=== PATIENT | female | born 1935 | race Caucasian/White ===

== ENCOUNTER 2019-02-15 14:35 | Inpatient (IN) | payer MEDICARE, OTHER ==
[2019-02-15] MEDS ORDERED: ACETAMINOPHEN 325 MG TABLET PO PRN (16:41)
[2019-02-15] MEDS ORDERED: SODIUM CHLORIDE FLUSH 0.9% 10 ML SYRINGE IVP PRN (16:41)
[2019-02-15] MEDS ORDERED: PROCHLORPERAZINE 10 MG/2 ML VIAL IVP PRN (16:41)
[2019-02-15] MEDS ORDERED: LEVALBUTEROL 1.25 MG/3 ML NEB INH PRN (16:50)
[2019-02-15] MEDS ORDERED: guaiFENesin/CODEINE 5 ML UDC PO PRN (16:52)
[2019-02-15] MEDS: SODIUM CHLORIDE FLUSH 0.9% 10 ML SYRINGE IVP SCH (19:03)
[2019-02-15] MEDS: DEXTROSE 5%-0.45% NACL 1,000 ML IV SCH (19:03)
--- NOTE | 2019-02-15 19:50 | HISTORY & PHYSICAL EXAMINATION ---
DATE OF SERVICE: 02/15/2019 Physician: Sarai Gordon MD HISTORY OF PRESENT ILLNESS: This is an 83-year-old white female with history of hypertension and hyperlipidemia on medications. Otherwise a negative past medical history. The patient developed a cough, sputum production and shortness of breath yesterday. She felt very weak and tired and went to bed early. She woke up to go to the bathroom in the middle of the night and fell on the floor, hitting her left side of her head. She was too weak to get up. Her finally helped her and it took him all his strength to raise her to bed, because he also currently has upper respiratory infection. She was brought to the emergency room this morning and first blood pressure check was 93 systolic. She was started on fluids and the blood pressure improved into the 115 range. There was a temperature of 101 F, and resting room air oxygen showed a low saturation of 87%. She had an influenza swab was positive for influenza A. The patient has never been to this hospital. The above ER evaluation was at [facility], where she was planned to be admitted, but they are full and on divert. The [facility] ER doctor called me and I accepted her in transfer for direct admission. PAST MEDICAL HISTORY: Hypertension and hyperlipidemia. SOCIAL HISTORY: The patient is an ex-smoker who quit in the 1970s, drinks no alcohol, uses no illicit drugs. 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 She lives with her . FAMILY HISTORY: Rheumatoid arthritis runs in the family, which her father, and 2 of her 3 children have, but she does not have this. REVIEW OF SYSTEMS: A comprehensive review of systems was performed. The pertinent positives are listed, the rest are negative. ALLERGIES: NONE. MEDICATIONS: Blood pressure medicine and statin medicine (names unknown), otherwise, not known yet, as far as any p.r.n. or [id number] medication. PHYSICAL EXAMINATION GENERAL: White female who appears younger than her age. She has a large ecchymosis around the left eye. VITAL SIGNS: Blood pressure 128/50, heart rate 78 in sinus rhythm, oxygen saturation 96% on 4 liters nasal cannula. HEENT: Reveals the large ecchymosis of the left eye, but her extraocular movements are intact and her pupils are equal, round and reactive. NECK: Has no JVD or carotid bruits. CHEST: Clear. Good air movement. No wheezing. HEART: Heart sounds are normal. No murmur, gallop or rub. ABDOMEN: Soft, obese. Positive bowel sounds. Nontender. No organomegaly. EXTREMITIES: Ecchymoses over the lower extremities and the right elbow. NEUROLOGIC: Grossly intact. LABORATORY DATA: No labs are available here; however, the reports given to me were the following: she has influenza A positive. Lactic acid normal. Chest x- ray showed no infiltrate. A CT of the head was done that showed no abnormality. IMPRESSION/DIAGNOSES 1. Hypotension. 2. Hypoxia. 3. Bronchitis. 4. Influenza A. 5. Fall at home. PLAN 1. Admit the patient to telemetry. 2. Obtain an Echo to evaluate for abnormalities to explain the hypoxia and hypotension. 3. Continue with IV fluids for the low blood pressure. 4. Culture her sputum. 5. Use nebulizers p.r.n. 6. Tamiflu was started in the emergency room at [facility] and should be continued here for a 5 to 10-day course. 7. Infectious isolation precautions will be started. 8. Mucinex will be ordered for her cough. 9. Pulmonary toilet. 10. Obtain standard blood tests here. DEEP VENOUS THROMBOSIS PROPHYLAXIS: SCDs. CODE STATUS: FULL CODE. ATTESTATION: The patient is expected to be discharged or transferred to another facility at 96 hours: Yes. cc: Primary Care , TD: 02/15/2019 19:21 MTDD
[2019-02-15] MEDS ORDERED: MIN OIL/DIMETHICON/COCONUT OIL 92 GM TUBE TOP SCH (21:00)
[2019-02-15] MEDS ORDERED: NYSTATIN POWDER 15 GM TOP SCH (21:00)
[2019-02-15] MEDS ORDERED: OSELTAMIVIR 75 MG CAPSULE PO SCH (21:00)
[2019-02-15] MEDS: guaiFENesin 600 MG TABLET PO SCH (21:27)
[2019-02-16] MEDS: SODIUM CHLORIDE FLUSH 0.9% 10 ML SYRINGE IVP SCH ×3 (01:51→17:04)
[2019-02-16] MEDS: DEXTROSE 5%-0.45% NACL 1,000 ML IV SCH ×2 (04:27→17:03)
[2019-02-16 05:53] LABS: BASOPHILS % (AUTO) 0.6 %; EOSINOPHILS % (AUTO) 0.6 %; HGB - HEMOGLOBIN 11.3 g/dL (12.0-16.0); LYMPHOCYTES % (AUTO) 22.9 %; MEAN CORPUSCULAR HEMOGLOBIN 31.8 pg (27.0-31.0); MEAN CORPUSCULAR HGB CONC 33.2 g/dL (32.0-36.0); MEAN CORPUSCULAR VOLUME 95.6 fL (81.0-99.0); MEAN PLATELET VOLUME 7.8 fL (7.9-10.8); MONOCYTES % (AUTO) 22.6 %; NEUTROPHILS # (AUTO) 2.4 10^3/uL (1.5-6.6); NEUTROPHILS % (AUTO) 53.3 %; PLT - PLATELET COUNT 271 10^3/uL (130-450); RED BLOOD COUNT 3.54 10^6/uL (4.20-5.40); RED CELL DISTRIBUTION WIDTH 13.2 % (12.0-15.0); WHITE BLOOD COUNT 4.6 x10^3/uL (4.8-10.8)
[2019-02-16 06:07] LABS: ALBUMIN 2.9 g/dL (3.2-5.5); BILIRUBIN,TOTAL 0.6 mg/dL (0.2-1.0); CALCIUM 8.2 mg/dL (8.5-10.3); CREATININE 0.9 mg/dL (0.4-1.0); MAGNESIUM 1.6 mg/dL (1.7-2.8); TOTAL PROTEIN 5.9 g/dL (6.7-8.2)
[2019-02-16] MEDS: FAMOTIDINE 20 MG TABLET PO SCH ×3 (08:20→21:40)
[2019-02-16] MEDS ORDERED: POTASSIUM CHLORIDE 20 MEQ TABLET PO ONE (08:28)
[2019-02-16] MEDS: guaiFENesin 600 MG TABLET PO SCH ×2 (09:02→21:40)
[2019-02-16] MEDS: MAGNESIUM OXIDE 400 MG TABLET PO SCH (09:02)
[2019-02-16] MEDS: POLYETHYLENE GLYCOL 3350 17 GM PACKET PO SCH (09:03)
[2019-02-16] MEDS: OSELTAMIVIR 30 MG CAPSULE PO SCH ×2 (09:03→21:41)
[2019-02-16] MEDS: ACETAMINOPHEN 325 MG TABLET PO PRN (09:03)
--- NOTE | 2019-02-16 12:24 | XRAY Report ---
Reason: F/U cough and SOB Procedure Date: 02/16/2019 Accession Number: [id number] / [id number] Procedure: XR - Chest 1 View X-Ray CPT Code: 10060 FULL RESULT: EXAM: CHEST RADIOGRAPHY EXAM DATE: 02/16/2019 11:27 AM. CLINICAL HISTORY: Follow up cough and shortness of breath. COMPARISON: XR CHEST 1V 02/15/2019 12:32 PM. TECHNIQUE: 1 view. FINDINGS: Lungs/Pleura: No focal opacities evident. No pleural effusion. No pneumothorax. Mediastinum: Within exam limitations, the cardiomediastinal contour is normal. Other: None. IMPRESSION: No acute airspace disease is detected. RADIA
--- NOTE | 2019-02-16 14:59 | PROVIDER PROGRESS NOTE ---
Assessment/Plan - Problem List (1) Bronchitis Assessment/Plan: No hypoxia on peters[pplemental O2. No evidence of pneumonia on our CXR, repeated this am after iv hydration. She has less cough and no SOB at rest. Continue influenza treatment. Wean off O2 when possible. (2) Influenza A Assessment/Plan: Continue Tamiflu for a 5 day course. She will be not infectious after 48 hours, which will be tomorrow evening. Poss DCh the following day (02/18/19). (3) Orthostatic hypotension Assessment/Plan: Still has drop in BP, but no supine hypotension. Will continue iv hydration. Echo pending. Her HTN meds will not be resumed yet. (4) Fall at home Assessment/Plan: This was likely from hypotension, orthostasis, dehydration. Echo pending (5) Hypoxia Assessment/Plan: Echo pending. (6) Hypokalemia Assessment/Plan: Likely from poor po intake. Replace K and monitor BMP daily. - Current Meds Current Meds: Current Medications Generic Name Dose Route Start Last Admin Trade Name Freq PRN Reason Stop Dose Admin Acetaminophen 650 mg 02/15/19 17:58 02/16/19 09:03 Tylenol PO 650 mg Q4HR PRN Administration Pain or Fever > 38C (100.4F) Famotidine 20 mg 02/15/19 21:00 02/16/19 09:02 Pepcid PO 20 mg BID MIAN Administration Guaifenesin 600 mg 02/15/19 21:00 02/16/19 09:02 Mucinex PO 600 mg BID MIAN Administration Dextrose/Sodium Chloride 1,000 mls @ 100 mls/hr 02/15/19 17:00 02/16/19 04:27 D5.45ns IV 100 mls/hr .Q10H MIAN Administration Levalbuterol HCl 1.25 mg 02/15/19 16:50 02/15/19 22:28 Xopenex INH 1.25 mg Q4H PRN Administration Shortness of Air/Wheezing Magnesium Oxide 400 mg 02/16/19 09:00 02/16/19 09:02 Mag Ox PO 400 mg DAILYWM MIAN Administration Oseltamivir Phosphate 30 mg 02/16/19 09:00 02/16/19 09:03 Tamiflu PO 02/20/19 21:01 30 mg BID MIAN Administration Polyethylene Glycol 17 gm 02/16/19 09:00 02/16/19 09:03 Miralax PO 17 gm DAILY MIAN Administration Sodium Chloride 10 ml 02/15/19 17:00 02/16/19 09:03 Normal Saline Flush 0.9% IVP Not Given 0100,0900,1700 MIAN - Lab Result Fish Bone Diagrams: 02/16/19 05:00 02/16/19 05:00 - EKG Results EKG Interpreted Independently: Yes EKG Comparison: No prior EKG EKG Findings: NSR, flat lateral T waves. - Additional Planning My Orders: My Active Orders 02/15/19 16:41 Activity Orders [RC] Q2HR IO [RC] IOSHIFT Initiate Bowel Care Protocol [RC] .protocol Initiate Bronchodialator Dori [RC] .PROTOCOL Initiate Line Care Protocol [RC] .protocol Initiate Line Care Protocol [RC] .protocol Initiate Personal Care Protoco [RC] .protocol Initiate Secretion Clearance P [RC] .PROTOCOL Oxygen Therapy [RC] .PRN Telemetry- [RC] Q4HR Vital Signs [RC] Q4HR Prochlorperazine Inj [Compazine Inj] 10 mg IVP Q6HR PRN Sodium Chloride Flush 0.9% [Normal Saline Flush 0.9%] 10 ml IVP PRN PRN Code Status [OTHERS] Routine Condition of Patient [OTHERS] Routine DVT Prophylaxis [OTHERS] Routine 02/15/19 16:48 IV Insert [RC] .ONCE SCDs [RC] QSHIFT 02/15/19 16:50 Nebulizer/MDI Tx. [RC] .PRNQ4 Levalbuterol [Xopenex] 1.25 mg INH Q4H PRN 02/15/19 16:52 guaiFENesin/CODEINE [Robitussin AC] 5 ml PO Q6HR PRN 02/15/19 16:53 Infection Precautions [RC] ONCE 02/15/19 17:00 Dextrose 5%-0.45% NaCl [D5.45ns] 1,000 ml IV 100 mls/hr Sodium Chloride Flush 0.9% [Normal Saline Flush 0.9%] 10 ml IVP 0100,0900,1700 02/15/19 17:58 Acetaminophen [Tylenol] 650 mg PO Q4HR PRN 02/15/19 21:00 Famotidine [Pepcid] 20 mg PO BID guaiFENesin [Mucinex] 600 mg PO BID 02/15/19 Dinner Regular Diet [DIET] 02/16/19 08:00 Echo Transthoracic Complete [ECHO] Routine 02/16/19 09:00 Magnesium Oxide [Mag Ox] 400 mg PO DAILYWM Oseltamivir [Tamiflu] 30 mg PO BID Polyethylene Glycol 3350 [Miralax] 17 gm PO DAILY 02/16/19 10:16 Postural [Vital Signs - Orthostatic] [RC] DAILY 02/17/19 05:00 CBC - COMP BLD CT W/AUTO DIFF [HEME] DAILYLAB CMP [COMPREHENSIVE METABOLIC PANEL] [CHEM] DAILYLAB MAGNESIUM [CHEM] DAILYLAB 02/18/19 05:00 CBC - COMP BLD CT W/AUTO DIFF [HEME] DAILYLAB CMP [COMPREHENSIVE METABOLIC PANEL] [CHEM] DAILYLAB Subjective - Subjective Patient Reports: Feeling Better, Resting Comfortably Objective Vital Signs: Vital Signs - 24 hr 02/15/19 02/15/19 02/15/19 17:59 18:26 19:44 Temperature 37.8 C H 37.7 C H Heart Rate Heart Rate [ 78 Brachial] Heart Rate [ Sitting (After 1 Minute)] Heart Rate [ Standing (After 1 Minute)] Heart Rate [ Supine] Respiratory 16 Rate Blood Pressure 128/53 L [Left Brachial artery] Blood Pressure [Sitting (After 1 Minute)] Blood Pressure [Standing ( After 1 Minute) ] Blood Pressure [Supine] O2 Saturation 96 02/15/19 02/15/19 02/16/19 22:22 22:34 00:12 Temperature 37.7 C H 37.5 C Heart Rate 76 Heart Rate [ 72 71 Brachial] Heart Rate [ Sitting (After 1 Minute)] Heart Rate [ Standing (After 1 Minute)] Heart Rate [ Supine] Respiratory 16 20 18 Rate Blood Pressure 120/45 L 100/44 L [Left Brachial artery] Blood Pressure [Sitting (After 1 Minute)] Blood Pressure [Standing ( After 1 Minute) ] Blood Pressure [Supine] O2 Saturation 95 97 02/16/19 02/16/19 02/16/19 05:00 07:34 10:40 Temperature 37.9 C H 37.9 C H Heart Rate Heart Rate [ 73 77 Brachial] Heart Rate [ 85 Sitting (After 1 Minute)] Heart Rate [ 84 Standing (After 1 Minute)] Heart Rate [ 74 Supine] Respiratory 18 19 Rate Blood Pressure 111/52 L 131/50 H [Left Brachial artery] Blood Pressure 130/54 L [Sitting (After 1 Minute)] Blood Pressure 107/54 L [Standing ( After 1 Minute) ] Blood Pressure 122/47 L [Supine] O2 Saturation 94 95 02/16/19 02/16/19 13:00 14:25 Temperature 37.1 C 37.9 C H Heart Rate 74 Heart Rate [ 62 Brachial] Heart Rate [ Sitting (After 1 Minute)] Heart Rate [ Standing (After 1 Minute)] Heart Rate [ Supine] Respiratory 20 20 Rate Blood Pressure 118/54 L [Left Brachial artery] Blood Pressure [Sitting (After 1 Minute)] Blood Pressure [Standing ( After 1 Minute) ] Blood Pressure [Supine] O2 Saturation 98 95 Oxygen O2 Source Nasal cannula I&O (Last 24 Hrs): Intake and Output Totals x24h 02/14/19 02/15/19 02/16/19 23:59 23:59 23:59 Intake Total 500 1960 Output Total 600 800 Balance -100 1160 General: Alert, Oriented x3 HEENT: Mucous membr. moist/pink, Other (L eye ecchymosis) Neck: No JVD Neuro: Non Focal Cardiovascular: Regular rate Respiratory: No respiratory distress Abdomen: Soft Extremities: No edema - Results Results: Laboratory Results WBC 4.6 x10^3/uL (4.8-10.8) L 02/16/19 05:00 RBC 3.54 10^6/uL (4.20-5.40) L 02/16/19 05:00 Hgb 11.3 g/dL (12.0-16.0) L 02/16/19 05:00 Hct 33.9 % (37.0-47.0) L 02/16/19 05:00 MCV 95.6 fL (81.0-99.0) 02/16/19 05:00 MCH 31.8 pg (27.0-31.0) H 02/16/19 05:00 MCHC 33.2 g/dL (32.0-36.0) 02/16/19 05:00 RDW 13.2 % (12.0-15.0) 02/16/19 05:00 Plt Count 271 10^3/uL (130-450) 02/16/19 05:00 MPV 7.8 fL (7.9-10.8) L 02/16/19 05:00 Neut # (Auto) 2.4 10^3/uL (1.5-6.6) 02/16/19 05:00 Lymph # (Auto) 1.0 10^3/uL (1.5-3.5) L 02/16/19 05:00 [place] # (Auto) 1.0 10^3/uL (0.0-1.0) 02/16/19 05:00 Eos # (Auto) 0.0 10^3/uL (0.0-0.7) 02/16/19 05:00 Baso # (Auto) 0.0 10^3/uL (0.0-0.1) 02/16/19 05:00 Absolute Nucleated RBC 0.00 x10^3/uL 02/16/19 05:00 Nucleated RBC % 0.0 /100WBC 02/16/19 05:00 Sodium 138 mmol/L (135-145) 02/16/19 05:00 Potassium 3.2 mmol/L (3.5-5.0) L 02/16/19 05:00 Chloride 93 mmol/L (101-111) L 02/16/19 05:00 Carbon Dioxide 34 mmol/L (21-32) H 02/16/19 05:00 Anion Gap 11.0 (6-13) 02/16/19 05:00 BUN 12 mg/dL (6-20) 02/16/19 05:00 Creatinine 0.9 mg/dL (0.4-1.0) 02/16/19 05:00 Estimated GFR (MDRD) 60 (>89) L 02/16/19 05:00 Glucose 115 mg/dL (70-100) H 02/16/19 05:00 Calcium 8.2 mg/dL (8.5-10.3) L 02/16/19 05:00 Magnesium 1.6 mg/dL (1.7-2.8) L 02/16/19 05:00 Total Bilirubin 0.6 mg/dL (0.2-1.0) 02/16/19 05:00 AST 32 IU/L (10-42) 02/16/19 05:00 ALT 22 IU/L (10-60) 02/16/19 05:00 Alkaline Phosphatase 73 IU/L (42-121) 02/16/19 05:00 Total Protein 5.9 g/dL (6.7-8.2) L 02/16/19 05:00 Albumin 2.9 g/dL (3.2-5.5) L 02/16/19 05:00 Globulin 3.0 g/dL (2.1-4.2) 02/16/19 05:00 Albumin/Globulin Ratio 1.0 (1.0-2.2) 02/16/19 05:00
[2019-02-17] MEDS: SODIUM CHLORIDE FLUSH 0.9% 10 ML SYRINGE IVP SCH ×4 (02:52→23:23)
[2019-02-17] MEDS: DEXTROSE 5%-0.45% NACL 1,000 ML IV SCH ×2 (02:52→13:01)
[2019-02-17 05:23] LABS: BASOPHILS % (AUTO) 0.6 %; EOSINOPHILS # (AUTO) 0.2 10^3/uL (0.0-0.7); EOSINOPHILS % (AUTO) 3.2 %; HGB - HEMOGLOBIN 11.3 g/dL (12.0-16.0); LYMPHOCYTES # (AUTO) 1.1 10^3/uL (1.5-3.5); LYMPHOCYTES % (AUTO) 17.4 %; MEAN CORPUSCULAR HEMOGLOBIN 31.5 pg (27.0-31.0); MEAN CORPUSCULAR HGB CONC 32.9 g/dL (32.0-36.0); MEAN CORPUSCULAR VOLUME 95.7 fL (81.0-99.0); MEAN PLATELET VOLUME 7.9 fL (7.9-10.8); MONOCYTES # (AUTO) 0.6 10^3/uL (0.0-1.0); MONOCYTES % (AUTO) 10.4 %; NEUTROPHILS # (AUTO) 4.2 10^3/uL (1.5-6.6); NEUTROPHILS % (AUTO) 68.4 %; PLT - PLATELET COUNT 268 10^3/uL (130-450); RED BLOOD COUNT 3.58 10^6/uL (4.20-5.40); RED CELL DISTRIBUTION WIDTH 13.1 % (12.0-15.0); WHITE BLOOD COUNT 6.2 x10^3/uL (4.8-10.8)
[2019-02-17 05:33] LABS: ALBUMIN 2.7 g/dL (3.2-5.5); ALBUMIN/GLOBULIN RATIO 0.8 (1.0-2.2); BILIRUBIN,TOTAL 0.2 mg/dL (0.2-1.0); CALCIUM 8.4 mg/dL (8.5-10.3); CREATININE 0.7 mg/dL (0.4-1.0); MAGNESIUM 1.6 mg/dL (1.7-2.8); TOTAL PROTEIN 5.9 g/dL (6.7-8.2)
[2019-02-17] MEDS ORDERED: POTASSIUM CHLORIDE 20 MEQ TABLET PO SCH (08:16)
[2019-02-17] MEDS: ACETAMINOPHEN 325 MG TABLET PO PRN (09:16)
[2019-02-17] MEDS: guaiFENesin 600 MG TABLET PO SCH ×2 (09:16→21:09)
[2019-02-17] MEDS: FAMOTIDINE 20 MG TABLET PO SCH ×2 (09:17→21:09)
[2019-02-17] MEDS: MAGNESIUM OXIDE 400 MG TABLET PO SCH (09:17)
[2019-02-17] MEDS: POLYETHYLENE GLYCOL 3350 17 GM PACKET PO SCH (09:17)
[2019-02-17] MEDS: OSELTAMIVIR 30 MG CAPSULE PO SCH ×2 (09:17→21:09)
[2019-02-17] MEDS ORDERED: LOPERAMIDE 2 MG CAPSULE PO PRN (11:41)
--- NOTE | 2019-02-17 11:43 | PROVIDER PROGRESS NOTE ---
Assessment/Plan - Problem List (1) Bronchitis Assessment/Plan: Continue Tamiflu and Mucinex. Will try to wean off supplemental O2 and assess with activity. (2) Influenza A Assessment/Plan: As above. A 5-7 day course of Tamiflu is planned. Respiratory isolation will be stopped after 24 hours of treatment: at dinnertime tonight. (3) Diarrhea Assessment/Plan: Pt requesting Imodium, will order. Will stop Miralax. (4) Fall at home Assessment/Plan: Related to hyptension, found at admission, needed iv fluids. No fractures found at treuma site near L eye. and cheek. (5) Hypoxia Assessment/Plan: Will wean O2 to off and assess with activity. (6) Hypokalemia Assessment/Plan: Needs replacement. Probably from being on HCTZ as her BP med. Will monitor BMP daily. (7) Orthostatic hypotension Assessment/Plan: Resolved Will stop IV hydration. Increase activity. - Current Meds Current Meds: Current Medications Generic Name Dose Route Start Last Admin Trade Name Freq PRN Reason Stop Dose Admin Acetaminophen 650 mg 02/15/19 17:58 02/17/19 09:16 Tylenol PO 650 mg Q4HR PRN Administration Pain or Fever > 38C (100.4F) Famotidine 20 mg 02/15/19 21:00 02/17/19 09:17 Pepcid PO 20 mg BID MIAN Administration Guaifenesin 600 mg 02/15/19 21:00 02/17/19 09:16 Mucinex PO 600 mg BID MIAN Administration Dextrose/Sodium Chloride 1,000 mls @ 100 mls/hr 02/15/19 17:00 02/17/19 02:52 D5.45ns IV 100 mls/hr .Q10H MIAN Administration Levalbuterol HCl 1.25 mg 02/15/19 16:50 02/15/19 22:28 Xopenex INH 1.25 mg Q4H PRN Administration Shortness of Air/Wheezing Magnesium Oxide 400 mg 02/16/19 09:00 02/17/19 09:17 Mag Ox PO 400 mg DAILYWM MIAN Administration Oseltamivir Phosphate 30 mg 02/16/19 09:00 02/17/19 09:17 Tamiflu PO 02/20/19 21:01 30 mg BID MIAN Administration Polyethylene Glycol 17 gm 02/16/19 09:00 02/17/19 09:17 Miralax PO Not Given DAILY MIAN Sodium Chloride 10 ml 02/15/19 17:00 02/17/19 09:17 Normal Saline Flush 0.9% IVP Not Given 0100,0900,1700 MIAN - Lab Result Fish Bone Diagrams: 02/17/19 04:45 02/17/19 04:45 - Additional Planning My Orders: My Active Orders 02/17/19 11:41 Loperamide [Imodium] 2 mg PO QID PRN 02/18/19 05:00 CBC - COMP BLD CT W/AUTO DIFF [HEME] DAILYLAB CMP [COMPREHENSIVE METABOLIC PANEL] [CHEM] DAILYLAB Subjective - Subjective Patient Reports: Feeling Better, Resting Comfortably, Diarrhea, Other (Cough has decreased since yesterday and is not productive,) Objective Vital Signs: Vital Signs - 24 hr 02/16/19 02/16/19 02/16/19 13:00 14:25 15:45 Temperature 37.1 C 37.9 C H 37.1 C Heart Rate 74 Heart Rate [ 62 63 Brachial] Heart Rate [ Sitting (After 1 Minute)] Heart Rate [ Standing (After 1 Minute)] Heart Rate [ Supine] Respiratory 20 20 19 Rate Blood Pressure 118/54 L [Left Brachial artery] Blood Pressure 118/52 L [Right Brachial artery] Blood Pressure [Sitting (After 1 Minute)] Blood Pressure [Standing ( After 1 Minute) ] Blood Pressure [Supine] O2 Saturation 98 95 99 02/16/19 02/16/19 02/17/19 21:00 23:53 04:12 Temperature 37.0 C 36.9 C 37.4 C Heart Rate Heart Rate [ 66 66 73 Brachial] Heart Rate [ Sitting (After 1 Minute)] Heart Rate [ Standing (After 1 Minute)] Heart Rate [ Supine] Respiratory 19 18 18 Rate Blood Pressure 131/51 H [Left Brachial artery] Blood Pressure 135/55 H 103/50 L [Right Brachial artery] Blood Pressure [Sitting (After 1 Minute)] Blood Pressure [Standing ( After 1 Minute) ] Blood Pressure [Supine] O2 Saturation 98 100 99 02/17/19 02/17/19 02/17/19 04:30 08:00 09:00 Temperature 37.4 C 37.5 C Heart Rate 73 Heart Rate [ 73 Brachial] Heart Rate [ 71 Sitting (After 1 Minute)] Heart Rate [ 80 Standing (After 1 Minute)] Heart Rate [ 69 Supine] Respiratory 18 14 Rate Blood Pressure [Left Brachial artery] Blood Pressure 127/57 L [Right Brachial artery] Blood Pressure 145/63 H [Sitting (After 1 Minute)] Blood Pressure 140/58 H [Standing ( After 1 Minute) ] Blood Pressure 145/63 H [Supine] O2 Saturation 99 99 02/17/19 11:24 Temperature Heart Rate Heart Rate [ Brachial] Heart Rate [ Sitting (After 1 Minute)] Heart Rate [ Standing (After 1 Minute)] Heart Rate [ Supine] Respiratory Rate Blood Pressure [Left Brachial artery] Blood Pressure [Right Brachial artery] Blood Pressure [Sitting (After 1 Minute)] Blood Pressure [Standing ( After 1 Minute) ] Blood Pressure [Supine] O2 Saturation 98 Oxygen O2 Source Nasal cannula I&O (Last 24 Hrs): Intake and Output Totals x24h 02/15/19 02/16/19 02/17/19 23:59 23:59 23:59 Intake Total 500 3460 1337.667 Output Total 600 800 Balance -100 2660 1337.667 General: Alert, Oriented x3 HEENT: Mucous membr. moist/pink Neck: Supple, No JVD Neuro: Non Focal Cardiovascular: Regular rate, No murmurs Respiratory: No respiratory distress, Breath sounds nml Extremities: No edema - Results Results: Laboratory Results WBC 6.2 x10^3/uL (4.8-10.8) 02/17/19 04:45 RBC 3.58 10^6/uL (4.20-5.40) L 02/17/19 04:45 Hgb 11.3 g/dL (12.0-16.0) L 02/17/19 04:45 Hct 34.3 % (37.0-47.0) L 02/17/19 04:45 MCV 95.7 fL (81.0-99.0) 02/17/19 04:45 MCH 31.5 pg (27.0-31.0) H 02/17/19 04:45 MCHC 32.9 g/dL (32.0-36.0) 02/17/19 04:45 RDW 13.1 % (12.0-15.0) 02/17/19 04:45 Plt Count 268 10^3/uL (130-450) 02/17/19 04:45 MPV 7.9 fL (7.9-10.8) 02/17/19 04:45 Neut # (Auto) 4.2 10^3/uL (1.5-6.6) 02/17/19 04:45 Lymph # (Auto) 1.1 10^3/uL (1.5-3.5) L 02/17/19 04:45 [place] # (Auto) 0.6 10^3/uL (0.0-1.0) 02/17/19 04:45 Eos # (Auto) 0.2 10^3/uL (0.0-0.7) 02/17/19 04:45 Baso # (Auto) 0.0 10^3/uL (0.0-0.1) 02/17/19 04:45 Absolute Nucleated RBC 0.00 x10^3/uL 02/17/19 04:45 Nucleated RBC % 0.0 /100WBC 02/17/19 04:45 Sodium 138 mmol/L (135-145) 02/17/19 04:45 Potassium 3.4 mmol/L (3.5-5.0) L 02/17/19 04:45 Chloride 95 mmol/L (101-111) L 02/17/19 04:45 Carbon Dioxide 35 mmol/L (21-32) H 02/17/19 04:45 Anion Gap 8.0 (6-13) 02/17/19 04:45 BUN 11 mg/dL (6-20) 02/17/19 04:45 Creatinine 0.7 mg/dL (0.4-1.0) 02/17/19 04:45 Estimated GFR (MDRD) 80 (>89) L 02/17/19 04:45 Glucose 118 mg/dL (70-100) H 02/17/19 04:45 Calcium 8.4 mg/dL (8.5-10.3) L 02/17/19 04:45 Magnesium 1.6 mg/dL (1.7-2.8) L 02/17/19 04:45 Total Bilirubin 0.2 mg/dL (0.2-1.0) 02/17/19 04:45 AST 36 IU/L (10-42) 02/17/19 04:45 ALT 28 IU/L (10-60) 02/17/19 04:45 Alkaline Phosphatase 77 IU/L (42-121) 02/17/19 04:45 Total Protein 5.9 g/dL (6.7-8.2) L 02/17/19 04:45 Albumin 2.7 g/dL (3.2-5.5) L 02/17/19 04:45 Globulin 3.2 g/dL (2.1-4.2) 02/17/19 04:45 Albumin/Globulin Ratio 0.8 (1.0-2.2) L 02/17/19 04:45
[2019-02-18 06:23] LABS: BASOPHILS % (AUTO) 0.6 %; EOSINOPHILS # (AUTO) 0.2 10^3/uL (0.0-0.7); EOSINOPHILS % (AUTO) 3.8 %; HGB - HEMOGLOBIN 12.1 g/dL (12.0-16.0); LYMPHOCYTES # (AUTO) 1.4 10^3/uL (1.5-3.5); LYMPHOCYTES % (AUTO) 25.5 %; MEAN CORPUSCULAR HEMOGLOBIN 31.3 pg (27.0-31.0); MEAN CORPUSCULAR HGB CONC 32.9 g/dL (32.0-36.0); MEAN CORPUSCULAR VOLUME 95.3 fL (81.0-99.0); MEAN PLATELET VOLUME 7.9 fL (7.9-10.8); MONOCYTES # (AUTO) 0.5 10^3/uL (0.0-1.0); MONOCYTES % (AUTO) 8.6 %; NEUTROPHILS # (AUTO) 3.4 10^3/uL (1.5-6.6); NEUTROPHILS % (AUTO) 61.5 %; PLT - PLATELET COUNT 326 10^3/uL (130-450); RED BLOOD COUNT 3.86 10^6/uL (4.20-5.40); WHITE BLOOD COUNT 5.6 x10^3/uL (4.8-10.8)
[2019-02-18 06:38] LABS: ALBUMIN 3.4 g/dL (3.2-5.5); BILIRUBIN,TOTAL 0.5 mg/dL (0.2-1.0); CREATININE 0.6 mg/dL (0.4-1.0); TOTAL PROTEIN 6.8 g/dL (6.7-8.2)
[2019-02-18 08:01] VITALS: BP 126/64
[2019-02-18] MEDS: OSELTAMIVIR 30 MG CAPSULE PO SCH (08:20)
[2019-02-18] MEDS: FAMOTIDINE 20 MG TABLET PO SCH (08:20)
[2019-02-18] MEDS: guaiFENesin 600 MG TABLET PO SCH (08:20)
[2019-02-18] MEDS: SODIUM CHLORIDE FLUSH 0.9% 10 ML SYRINGE IVP SCH (08:20)
[2019-02-18] MEDS: MAGNESIUM OXIDE 400 MG TABLET PO SCH (08:20)
--- NOTE | 2019-02-18 08:35 | Discharge Plan ---
Discharge Plan Disposition: Home, Self Care Condition: Stable Prescriptions: guaiFENesin [Mucinex] 600 mg PO BID #10 tablet Loperamide [Imodium] 2 mg PO QID PRN #8 capsule PRN Reason: Diarrhea Oseltamivir [Tamiflu] 30 mg PO BID #5 capsule Diet: Low Sodium Activity Restrictions: Activity as Tolerated Shower Restrictions: No Driving Restrictions: No Instruction Topics: Viral Illness Resp Tx Ch, Vaccination Flu Ch Additional Instructions or Follow Up instructions: You were admitted for management of Influenza bronchitis, and dehydration causing low blood pressure which caused your fall. Please finish taking the Tamiflu tablets until they are done. Mucinex for the cough was prescribed. A prescription for Imodium anti-diarrhea was also ordered. [facility] in [place], [place] is not connected to our electronic prescribing system, therefore paper prescriptions are being sent home with you. You should NOT resume your HCTZ medication for hypertension, since it added to the dehydration and low blood pressure. You may resume any other pre-hospital medications however. Please see your PCP for hospital follow-up in 5-10 days. If you have new or worsening symptoms, call your PCP or go to the ER. No Smoking: If you smoke, Please STOP! Call for help. Follow-up with: BLANQUITA PINON MD [Primary Care Provider] -
--- NOTE | 2019-02-18 20:15 | DISCHARGE SUMMARY ---
Physician: Sarai Gordon MD DATE OF ADMISSION: 02/15/2019 DATE OF DISCHARGE: 02/18/2019 HISTORY OF PRESENT ILLNESS: This is an 83-year-old white female with history of hypertension and hyperlipidemia, on medications. Otherwise, a negative past medical history. She developed shortness of breath, cough with sputum production that she caught from her , was very weak and went to bed early one night, got up in the middle of the night and was so weak that she fell to the floor, hitting the left side of her head near her eye. She was too weak to get up and called for her , which took several hours. She was brought to the emergency room and her blood pressure was 93 systolic. CK was normal. She was started on iv fluids. A fever of 101 was documented and an oxygen saturation of 80% on room air. She had an influenza swab that was positive for influenza A, chest x-ray did not show evidence of an infiltrate. The emergency room doctor at [facility] called me and I accepted her in transfer for a direct admission to [facility] (because [facility] had no available inpatient beds). HOSPITAL COURSE AND DISCHARGE DIAGNOSES 1. Acute bronchitis. After overnight hydration, the patient had a chest x-ray at our facility to re-evaluate for pneumonia and this showed no infiltrates or any cardiopulmonary abnormality. She was therefore treated for acute bronchitis using Mucinex and treating the underlying influenza infection. 2. Influenza A. The patient was started on Tamiflu, at renally adjusted doses, starting at the [facility] Emergency Room and was kept on b.i.d. dosing while here. She was discharged to complete 2-1/2 more days of treatment with Tamiflu. 3. Diarrhea. On the day before discharge, she started to get diarrhea without cramping or pain, no foul smell. It was treated and managed with antidiarrheal medications. 4. Fall at home. The patient's hypotension was felt to be the cause of the fall. She was still orthostatic on day #2 and required hydration for two days. The facial bones were x-rayed at [facility] ER and there were no signs of fracture. 5. Dehydration. The patient had dry mucosa, sunken eyes on presentation and was hypotensive. She required 2 days of IV hydration and improved. 6. Hypokalemia. The patient presented with a potassium of 3.2, it was 3.4 on the next day and normal at the day of discharge. She required oral potassium replacement while here. The cause of this was felt to be her HCTZ use. 7. History of hypertension. The patient's blood pressure medication regimen was HCTZ only, which was on hold. She did not develop any hypertensive vital signs in order to resume blood pressure medication. HCTZ was adding to her volume depletion and low blood pressure. If she gets high blood pressure readings in the future, please consider an alternative management such as Amlodipine or Losartan. LABORATORY AND IMAGING: Reviewed and summarized above. ALLERGIES: NONE. MEDICATIONS AT TIME OF DISCHARGE 1. Eyedrops as prehospital. 2. Multivitamin daily. 3. Simvastatin 20 mg daily. 4. Mucinex 600 mg b.i.d. 5. Imodium 2 mg p.o. q.i.d. p.r.n. diarrhea. 6. Tamiflu 75 mg p.o. b.i.d. for 5 more doses (higher than renal dose since kidney function normalized after hydration). CONDITION AT DISCHARGE: Stable. PHYSICAL EXAMINATION VITAL SIGNS: Blood pressure 137/78 with no orthostasis, pulse of 80. HEENT: Remarkable for an ecchymosis around the left eye. Her oral mucosa is moist. NECK: Without JVD. No carotid bruits. CHEST: Clear. HEART: Sounds normal. No wheezes or rales. ABDOMEN: Soft, benign. EXTREMITIES: No edema. NEUROLOGIC: Intact. FOLLOWUP: She was advised to see her PCP in followup in 5-10 days. CODE STATUS: FULL CODE. Time required to complete this entire discharge, chart review, prescription orders, dictation: 30 minutes. TD: 02/18/2019 19:06 JOSE L
== END 2019-02-18 10:32 | disposition home or self-care (01) | DRG 195 ==
LOC: MS3 16:41
PROVIDERS: ADMIT Internal Medicine; ATTEND Internal Medicine
DX: J10.1 Influenza due to other identified influenza virus with other respiratory manifestations (principal); R19.7 Diarrhea, unspecified; E86.0 Dehydration; E87.6 Hypokalemia; I95.1 Orthostatic hypotension; E78.5 Hyperlipidemia, unspecified; S00.12XA Contusion of left eyelid and periocular area, initial encounter; W19.XXXA Unspecified fall, initial encounter; Y92.009 Unspecified place in unspecified non-institutional (private) residence as the place of occurrence of the external cause; Z86.79 Personal history of other diseases of the circulatory system; Z87.891 Personal history of nicotine dependence
CPT/HCPCS: 36415; 71045; 80053; 83735; 85025; 93005; 93306; 94640; A9270